=== PATIENT | female | born 1965 | race Caucasian/White ===

== ENCOUNTER 2017-08-20 13:39 | Emergency (ER) | payer OTHER ==
[~2017-08-20] VITALS: Ht 157.5 cm; Wt 70.9 kg
[2017-08-20 13:44] VITALS: BP 122/79
--- NOTE | 2017-08-20 13:48 | NUR ---
PT AMBULATES TO BED 3
--- NOTE | 2017-08-20 13:50 | NUR ---
51/F BIB SELF C/O CUTIPS IN BL EARS X THIS AM.SKIN IS PINK/WARM/DRY; AAOX4 WITH EVEN AND STEADY GAIT; LUNGS CLEAR BL; HR EVEN AND REGULAR; PT DENIES ANY FEVER, CP, SOB, OR COUGH AT THIS TIME; PATIENT STATES PAIN OF 0/10 AT THIS TIME. PATIENT POSITIONED FOR COMFORT; HOB ELEVATED; BEDRAILS UP X2; BED DOWN. ER MD MADE AWARE OF PT STATUS.
--- NOTE | 2017-08-20 14:20 | NUR ---
Patient discharged with v/s stable. Written and verbal after care instructions given and explained. Patient alert, oriented and verbalized understanding of instructions. Ambulatory with steady gait. All questions addressed prior to discharge. ID band removed. Patient advised to follow up with PMD. Rx of CLARITIN-D 12 HR given. Patient educated on indication of medication including possible reaction and side effects. Opportunity to ask questions provided and answered.
[2017-08-20 14:21] VITALS: BP 119/75
== END 2017-08-20 14:20 | disposition home or self-care (01) ==
LOC: MED 13:39
DX: J30.2 Other seasonal allergic rhinitis (principal)
CPT/HCPCS: 99283

== ENCOUNTER 2017-11-23 11:51 | Emergency (ER) | payer OTHER ==
[~2017-11-23] VITALS: Ht 157.5 cm; Wt 62.6 kg
[2017-11-23 12:16] VITALS: BP 120/82
[2017-11-23 14:19] VITALS: BP 118/80
== END 2017-11-23 14:19 | disposition home or self-care (01) ==
LOC: MED 11:51
DX: L02.214 Cutaneous abscess of groin (principal); I10 Essential (primary) hypertension; E05.90 Thyrotoxicosis, unspecified without thyrotoxic crisis or storm
CPT/HCPCS: 90471; 90715; 99283

== ENCOUNTER 2019-02-23 16:01 | Emergency (ER) | payer OTHER ==
[~2019-02-23] VITALS: Ht 157.5 cm; Wt 68.0 kg
[2019-02-23 16:06] VITALS: BP 119/64
--- NOTE | 2019-02-23 16:25 | NUR ---
PT C/O RIGHT-SIDED TIGHTNESS/STABBING CHEST PAIN NON RADIATING X 1 MONTH. DENIES N/V OR SOB. PATIENT STATES PAIN OF 10/10 AT THIS TIME; VSS; PATIENT POSITIONED FOR COMFORT; HOB ELEVATED; BEDRAILS UP X1; BED DOWN. ER MD MADE AWARE OF PT STATUS.
[2019-02-23 17:12] LABS: BASOPHILS % (AUTO) 0.5 % (0.0-2.0); EOSINOPHILS # (AUTO) 0.2 K/uL (0-0.4); EOSINOPHILS % (AUTO) 5.6 % (0.0-4.0); HEMATOCRIT 33.8 % (36-48); HEMOGLOBIN 10.7 g/dL (12.0-16.0); LYMPHOCYTES # (AUTO) 1.5 K/uL (2.5-16.5); LYMPHOCYTES % (AUTO) 35.1 % (20.5-51.1); MEAN CORPUSCULAR HEMOGLOBIN 27 pg (27-31); MEAN CORPUSCULAR HGB CONC 32 g/dL (33-37); MEAN CORPUSCULAR VOLUME 84.5 fL (80-94); MONOCYTES # (AUTO) 0.4 K/uL (0.8-1.0); MONOCYTES % (AUTO) 8.1 % (1.7-9.3); NEUTROPHILS # (AUTO) 2.2 K/uL (1.8-7.7); NEUTROPHILS % (AUTO) 50.7 % (42.2-75.2); PLATELET COUNT (AUTO) 217 K/uL (140-450); RED CELL DISTRIBUTION WIDTH 15.7 % (11.6-13.7); WHITE BLOOD COUNT (AUTO) 4.4 K/uL (4.8-10.8)
[2019-02-23 17:23] LABS: ANION GAP 14.1 (8-16); CARBON DIOXIDE 22.5 mmol/L (21-32); CREATININE 0.9 mg/dL (0.6-1.3); POTASSIUM 3.6 mmol/L (3.5-5.1)
[2019-02-23 17:30] LABS: ALBUMIN 3.3 g/dL (3.4-5.0); TOTAL BILIRUBIN 0.4 mg/dL (0.0-1.0)
--- NOTE | 2019-02-23 17:41 | NUR ---
PT IS RESTING IN BED WITH EYES OPENED.
[2019-02-23 17:59] VITALS: BP 114/61
== END 2019-02-23 17:59 | disposition home or self-care (01) ==
LOC: MED 16:01
DX: R07.89 Other chest pain (principal); I10 Essential (primary) hypertension; E05.90 Thyrotoxicosis, unspecified without thyrotoxic crisis or storm
CPT/HCPCS: 36415; 71045; 80053; 83880; 84484; 85025; 93005; 99284; Q0092

== ENCOUNTER 2019-11-11 14:02 | Emergency (ER) | payer OTHER ==
[~2019-11-11] VITALS: Ht 157.5 cm; Wt 65.8 kg
[2019-11-11 14:05] VITALS: BP 127/79
--- NOTE | 2019-11-11 14:16 | NUR ---
54 Y/O F C/C CELLULITIS BELOW RIGHT GLUTEUS X 3 DAYS. PER PT UNSURE IF BITTEN BY BUG. AREA PRESENTS WITH ERYTHEMA AND SWELLING, 9/10 PAIN. TAKEN OTC RX WITH NO RELIEF. NKA. HX THYROID DISEASE. HX SYNTHROID. NO NVD. SIDE RAIL X1.
--- NOTE | 2019-11-11 14:20 | NUR ---
ERMD AT BEDSIDE
[2019-11-11 14:28] VITALS: BP 127/79
--- NOTE | 2019-11-11 14:28 | NUR ---
Patient discharged with v/s stable. Written and verbal after care instructions given and explained. Patient alert, oriented and verbalized understanding of instructions. Ambulatory with steady gait. All questions addressed prior to discharge. ID band removed. Patient advised to follow up with PMD. Rx of BACITRACIN,NAPROSYN,BACTRIM given. Patient educated on indication of medication including possible reaction and side effects. Opportunity to ask questions provided and answered.
== END 2019-11-11 14:28 | disposition home or self-care (01) ==
LOC: MED 14:02
DX: S30.860A Insect bite (nonvenomous) of lower back and pelvis, initial encounter (principal); L02.31 Cutaneous abscess of buttock; I10 Essential (primary) hypertension; E07.9 Disorder of thyroid, unspecified; W57.XXXA Bitten or stung by nonvenomous insect and other nonvenomous arthropods, initial encounter; Y93.89 Activity, other specified; Y92.89 Other specified places as the place of occurrence of the external cause; Y99.8 Other external cause status
CPT/HCPCS: 99283